=== PATIENT | male | born 1995 | race Caucasian/White ===

== ENCOUNTER 2024-01-05 17:26 | Inpatient (IN) | payer MEDICAID, OTHER ==
[~2024-01-05] VITALS: Ht 170.2 cm; Wt 46.3 kg
[2024-01-05 18:59] LABS: COVID AG,FIA SOURCE NPH
[2024-01-05 19:03] LABS: SARS-COV2 (COVID) ANTIGEN,FIA Negative (Negative)
[2024-01-05 19:11] LABS: BASOPHILS % (AUTO) 0.6 % (0.0-2.0); EOSINOPHILS % (AUTO) 0.1 % (1.0-6.0); HEMATOCRIT 46.1 % (41-53); HEMOGLOBIN 15.8 g/dL (13.5-17.5); LYMPHOCYTES # (AUTO) 1.5 K/uL (1.0-4.8); LYMPHOCYTES % (AUTO) 23.8 % (22.0-44.0); MEAN CORPUSCULAR HEMOGLOBIN 31.4 pg (26.0-34.0); MEAN CORPUSCULAR HGB CONC 34.3 G/dL (31.0-37.0); MEAN CORPUSCULAR VOLUME 91 fL (80-100); MONOCYTES # (AUTO) 0.4 K/uL (0.1-1.0); MONOCYTES % (AUTO) 6.8 % (2.0-9.0); NEUTROPHILS # (AUTO) 4.4 K/uL (1.8-7.7); NEUTROPHILS % (AUTO) 68.7 % (40.0-70.0); PLATELET COUNT (AUTO) 227 K/uL (150-450); RED BLOOD CELL COUNT(AUTO) 5.05 MIL/uL (4.50-5.90); RED CELL DISTRIBUTION WIDTH 13.3 % (11.5-14.5); WHITE BLOOD COUNT (AUTO) 6.4 K/uL (4.5-11.0)
[2024-01-05 19:20] LABS: ANION GAP 13 mmol/L (8-16); CALCIUM, TOTAL 9.3 mg/dL (8.8-10.5); CARBON DIOXIDE 25 mmol/L (22-29); CHLORIDE 100 mmol/L (98-107); CREATININE 0.91 mg/dL (0.60-1.30); GLOMERULAR FILTR. RATE CALC > 60 mL/min (>60); GLUCOSE,RANDOM 90 mg/dL (70-110); POTASSIUM 3.6 mmol/L (3.5-5.1); SODIUM SERUM 138 mmol/L (136-145); UREA NITROGEN, BLOOD 18 mg/dL (7-18)
[2024-01-05 19:32] LABS: ALANINE AMINOTRANSFERASE 18 U/L (12-78); ALBUMIN 4.8 g/dL (3.4-5.0); ALKALINE PHOSPHATASE 61 U/L (46-116); ASPARTATE AMINOTRANSFERASE 15 U/L (15-37); BILIRUBIN,TOTAL 1.5 mg/dL (0.1-1.0); TOTAL PROTEIN, SERUM 7.3 g/dL (6.4-8.2)
[2024-01-05 19:34] LABS: ALCOHOL, BLOOD (SERUM) < 3 mg/dL (0-10)
[2024-01-05] MEDS: LORazepam 2 MG/ML VIAL IM ONE (20:37)
[2024-01-05] MEDS: DiphenhydrAMINE HCL 50 MG/ML VIAL IM ONE (20:38)
[2024-01-05] MEDS: HALOPERIDOL LACTATE 5 MG/ML VIAL IM ONE (20:38)
[2024-01-06] MEDS ORDERED: HALOPERIDOL 5 MG TABLET PO PRN (02:00)
[2024-01-06 06:29] LABS: APPEARANCE,URINE HAZY (CLEAR); BILIRUBIN,URINE NEGATIVE (NEGATIVE); COLOR,URINE YELLOW (YELLOW); GLUCOSE, URINE (UA) NEGATIVE (NEGATIVE); KETONES,URINE 40-60 mg/dL (NEGATIVE); LEUKOCYTE ESTERASE ,URINE NEGATIVE (NEGATIVE); NITRATE,URINE NEGATIVE (NEGATIVE); OCCULT BLOOD,URINE NEGATIVE (NEGATIVE); PH,URINE 6.5 (5.0-8.0); PROTEIN,URINE 30-70 mg/dL (NEGATIVE); SPECIFIC GRAVITIY, URINE 1.034 (1.003-1.030)
[2024-01-06 06:30] LABS: PH,URINE DRUG SCREEN 6.5 (5.0-8.0)
[2024-01-06 06:35] LABS: ALCOHOL, URINE DRUG SCREEN NEGATIVE (NEGATIVE); AMPHET/METH SCREEN,URINE NEGATIVE (NEGATIVE); BARBITURATE SCREEN, URINE NEGATIVE (NEGATIVE); BENZODIAZEPINES SCREEN,URINE NEGATIVE (NEGATIVE); CANNABINOID SCREEN,URINE POSITIVE (NEGATIVE); COCAINE SCREEN,URINE NEGATIVE (NEGATIVE); METHADONE SCREEN, URINE NEGATIVE (NEGATIVE); OPIATE SCREEN,URINE NEGATIVE (NEGATIVE); PHENCYCLIDINE SCREEN,URINE NEGATIVE (NEGATIVE)
[2024-01-06 16:33] VITALS: BP 120/78; PULSE 78; RESP 18; TEMP 97.3; O2SAT 98
[2024-01-06] MEDS ORDERED: MAG HYDROX/ALUMINUM HYD/SIMETH ES 30 ML SUSPENSION UDCUP PO PRN (21:15)
[2024-01-06] MEDS ORDERED: NICOTINE 14 MG/24 HOUR PATCH TD PRN (21:15)
[2024-01-06] MEDS ORDERED: LOPERAMIDE HCL 2 MG CAPSULE PO PRN (21:15)
[2024-01-06] MEDS ORDERED: ALBUTEROL SULFATE HFA 90 MCG/PUFF 8 GM INHALER IH PRN (21:15)
[2024-01-06] MEDS ORDERED: PETROLATUM,WHITE 28 GM JELLY TP PRN (21:15)
[2024-01-06] MEDS ORDERED: DOCUSATE SODIUM 100 MG CAPSULE PO PRN (21:15)
[2024-01-06] MEDS ORDERED: MAGNESIUM HYDROXIDE SUSPENSION 30 ML UDCUP PO PRN (21:15)
[2024-01-06] MEDS ORDERED: ONDANSETRON HCL 4 MG TABLET PO PRN (21:15)
[2024-01-06] MEDS ORDERED: CloNIDine HCL 0.1 MG TABLET PO PRN (21:15)
[2024-01-06 21:35] VITALS: BP 125/89; PULSE 89; RESP 18; TEMP 96.8; O2SAT 97
[2024-01-06] MEDS: IBUPROFEN 400 MG TABLET PO PRN (21:40)
[2024-01-06] MEDS: ZOLPIDEM TARTRATE 10 MG TABLET PO PRN (22:37)
[2024-01-07 08:20] VITALS: RESP 18
[2024-01-07] MEDS: LORazepam 2 MG TABLET PO PRN (13:28)
[2024-01-07 21:10] VITALS: BP 120/74; PULSE 109; RESP 18; TEMP 98.2; O2SAT 97
[2024-01-08 08:04] VITALS: BP 124/80; PULSE 112; RESP 18; TEMP 99.6; O2SAT 96
[2024-01-08 08:18] VITALS: BP 124/80; PULSE 112; RESP 18; TEMP 99.6; O2SAT 96
[2024-01-08] MEDS: GuaiFENesin/D-METHORPHAN [SUGAR-FREE] 200-20MG/10 ML SYRUP UDCUP PO PRN (11:21)
[2024-01-08] MEDS: BENZOCAINE/MENTHOL LOZENGE PO PRN (15:36)
[2024-01-08 20:06] VITALS: BP 123/85; PULSE 112; RESP 18; TEMP 100.7; O2SAT 96
[2024-01-08 20:23] LABS: COVID AG,FIA SOURCE NASAL SWAB
[2024-01-08 20:42] LABS: SARS-COV2 (COVID) ANTIGEN,FIA Negative (Negative)
[2024-01-08 22:10] VITALS: TEMP 101.8
[2024-01-08] MEDS: ACETAMINOPHEN 325 MG TABLET PO PRN (22:13)
[2024-01-08 23:10] VITALS: TEMP 99.5
[2024-01-09 06:40] VITALS: RESP 18; TEMP 98; O2SAT 96
[2024-01-09 09:17] VITALS: BP 110/70; PULSE 106; RESP 18; TEMP 98.7; O2SAT 97
[2024-01-09 10:40] VITALS: BP 112/60; PULSE 100; RESP 18; TEMP 99; O2SAT 96
== END 2024-01-09 17:29 | disposition left against medical advice (07) | DRG 750 ==
LOC: EMS 17:26 → 3EC 01-06 15:04
PROVIDERS: ADMIT Psychiatry & Neurology Child & Adolescent Psychiatry; ATTEND Psychiatry & Neurology Child & Adolescent Psychiatry
DX: F20.9 Schizophrenia, unspecified (principal); E80.6 Other disorders of bilirubin metabolism; E87.6 Hypokalemia; G47.00 Insomnia, unspecified; Z53.29 Procedure and treatment not carried out because of patient's decision for other reasons; Z20.822 Contact with and (suspected) exposure to COVID-19; Z78.1 Physical restraint status; Z88.0 Allergy status to penicillin
CPT/HCPCS: 80053; 80307; 81003; 85025; 99285; G0480; J1200; J1630; J2060

== ENCOUNTER 2024-01-15 11:05 | Inpatient (IN) | payer MEDICAID ==
[~2024-01-15] VITALS: Ht 170.2 cm; Wt 49.9 kg
[~2024-01-15 11:05] MED LIST: OSEL75 PO
[2024-01-15] MEDS ORDERED: LORazepam 2 MG TABLET PO PRN (11:30)
[2024-01-15] MEDS ORDERED: OLANZapine 5 MG RAPDIS TABLET PO PRN (11:30)
[2024-01-15 21:45] VITALS: BP 113/67; PULSE 90; RESP 18; TEMP 97.7; O2SAT 100
[2024-01-15] MEDS: INFLUENZA VIRUS VACCINE QVS 2023-24 (6MO+)/PF 60 MCG/0.5 ML SYRINGE IM. ONE (22:00)
[2024-01-16 08:07] VITALS: BP 103/70; PULSE 85; RESP 18; TEMP 98; O2SAT 100
[2024-01-16] MEDS: DIVALPROEX SODIUM 500 MG ER TABLET PO SCH (16:06)
[2024-01-16 20:00] VITALS: BP 115/68; PULSE 80; RESP 18; TEMP 97.8; O2SAT 99
[2024-01-16] MEDS: OLANZapine 5 MG RAPDIS TABLET PO SCH (20:16)
[2024-01-17 08:07] VITALS: BP 120/64; PULSE 84; RESP 19; TEMP 97.9; O2SAT 100
[2024-01-17 10:38] LABS: APPEARANCE,URINE CLEAR (CLEAR); BILIRUBIN,URINE NEGATIVE (NEGATIVE); COLOR,URINE LIGHT YELLOW (YELLOW); GLUCOSE, URINE (UA) NEGATIVE (NEGATIVE); KETONES,URINE NEGATIVE (NEGATIVE); LEUKOCYTE ESTERASE ,URINE NEGATIVE (NEGATIVE); NITRATE,URINE NEGATIVE (NEGATIVE); OCCULT BLOOD,URINE NEGATIVE (NEGATIVE); PH,URINE 6.5 (5.0-8.0); PROTEIN,URINE NEGATIVE (NEGATIVE); SPECIFIC GRAVITIY, URINE 1.023 (1.003-1.030); UROBILINOGEN,URINE <=1.0 mg/dL (<=1.0)
[2024-01-17 10:43] LABS: PH,URINE DRUG SCREEN 6.5 (5.0-8.0)
[2024-01-17 10:46] LABS: ALCOHOL, URINE DRUG SCREEN NEGATIVE (NEGATIVE); AMPHET/METH SCREEN,URINE NEGATIVE (NEGATIVE); BARBITURATE SCREEN, URINE NEGATIVE (NEGATIVE); BENZODIAZEPINES SCREEN,URINE NEGATIVE (NEGATIVE); CANNABINOID SCREEN,URINE POSITIVE (NEGATIVE); COCAINE SCREEN,URINE NEGATIVE (NEGATIVE); METHADONE SCREEN, URINE NEGATIVE (NEGATIVE); OPIATE SCREEN,URINE NEGATIVE (NEGATIVE); PHENCYCLIDINE SCREEN,URINE NEGATIVE (NEGATIVE)
[2024-01-17 20:50] VITALS: BP 105/70; PULSE 78; RESP 18; TEMP 97.8; O2SAT 99
[2024-01-17] MEDS: ZOLPIDEM TARTRATE 10 MG TABLET PO PRN (23:04)
[2024-01-18 08:15] VITALS: BP 109/64; PULSE 88; RESP 16; TEMP 98.6; O2SAT 98
[2024-01-18] MEDS ORDERED: GuaiFENesin/D-METHORPHAN [SUGAR-FREE] 200-20MG/10 ML SYRUP UDCUP PO PRN (14:30)
[2024-01-18] MEDS ORDERED: HydrOXYzine PAMOATE 50 MG CAPSULE PO PRN (14:30)
[2024-01-18] MEDS ORDERED: MAG HYDROX/ALUMINUM HYD/SIMETH ES 30 ML SUSPENSION UDCUP PO PRN (14:30)
[2024-01-18] MEDS ORDERED: MAGNESIUM HYDROXIDE SUSPENSION 30 ML UDCUP PO PRN (14:30)
[2024-01-18] MEDS ORDERED: ACETAMINOPHEN 325 MG TABLET PO PRN (14:30)
[2024-01-18] MEDS ORDERED: PROMETHAZINE HCL 25 MG TABLET PO PRN (14:30)
[2024-01-18] MEDS ORDERED: LOPERAMIDE HCL 2 MG CAPSULE PO PRN (14:30)
[2024-01-18] MEDS: THIAMINE 100 MG TABLET PO SCH (16:54)
[2024-01-18 20:40] VITALS: BP 109/74; PULSE 78; RESP 16; TEMP 98.7; O2SAT 98
[2024-01-18] MEDS: MELATONIN 5 MG TABLET PO SCH (21:01)
[2024-01-19 08:32] VITALS: BP 104/87; PULSE 95; RESP 17; TEMP 97.6; O2SAT 96
[2024-01-19] MEDS: OMEGA-3/DHA/EPA/FISH OIL 1,000 MG CAPSULE PO SCH (08:54)
[2024-01-19] MEDS: MULTIVITAMINS WITH MINERALS, THERAPEUTIC TABLET PO SCH (08:55)
[2024-01-19] MEDS: FLUoxetine HCL 20 MG CAPSULE PO SCH (08:55)
[2024-01-19] MEDS: FOLIC ACID 1 MG TABLET PO SCH (08:55)
[2024-01-19 20:06] VITALS: BP 113/64; PULSE 80; RESP 16; TEMP 98.5; O2SAT 97
[2024-01-19] MEDS: OLANZapine 10 MG RAPDIS TABLET PO SCH (20:35)
[2024-01-20 08:04] VITALS: BP 102/68; PULSE 93; RESP 19; TEMP 98.2; O2SAT 98
[2024-01-20 08:04] LABS: CHOL/HDL RATIO 2.9 (4.2-7.3)
[2024-01-20 08:08] LABS: HEMOGLOBIN A1C 4.8 % (3.8-5.6)
[2024-01-20 20:18] VITALS: BP 116/76; PULSE 88; RESP 17; TEMP 98; O2SAT 100
[2024-01-21] MEDS: FLUoxetine HCL 20 MG CAPSULE PO SCH (08:15)
[2024-01-21 08:21] VITALS: BP 126/69; PULSE 102; RESP 17; TEMP 98.2; O2SAT 98
[2024-01-21] MEDS: TUBERCULIN, PURIFIED PROTEIN DERIVATIVE 5 TU/0.1 ML SYRINGE ID ONE (10:04)
[2024-01-21 20:05] VITALS: BP 111/74; PULSE 92; RESP 19; TEMP 98.5; O2SAT 99
[2024-01-21] MEDS ORDERED: DIVA500T69 PO (22:20)
[2024-01-21] MEDS ORDERED: OMEG-135 PO (22:20)
[2024-01-21] MEDS ORDERED: OLAN10TA26 PO (22:20)
[2024-01-21] MEDS ORDERED: FLUO20CA36 PO (22:20)
[2024-01-21] MEDS ORDERED: MELA5TAB40 PO (22:20)
[2024-01-22 08:31] VITALS: BP 117/67; PULSE 85; RESP 17; TEMP 98.5; O2SAT 100
[2024-01-22 20:05] VITALS: BP 113/81; PULSE 105; RESP 18; TEMP 97.3; O2SAT 95
[2024-01-23 08:20] VITALS: BP 116/70; PULSE 100; RESP 17; TEMP 98.5; O2SAT 100
[2024-01-23 20:37] VITALS: BP 106/63; PULSE 90; RESP 18; TEMP 98.7; O2SAT 97
[2024-01-24 08:21] VITALS: BP 117/83; PULSE 86; RESP 18; TEMP 98.4; O2SAT 98
[2024-01-24 20:30] VITALS: BP 102/61; PULSE 83; RESP 17; TEMP 98.1; O2SAT 98
[2024-01-25 08:11] VITALS: BP 116/72; PULSE 87; RESP 18; TEMP 98.4; O2SAT 97
[2024-01-25 08:12] VITALS: BP 116/72; PULSE 87; RESP 18; TEMP 98.4; O2SAT 97
[2024-01-25 21:16] VITALS: BP 116/77; PULSE 94; RESP 16; TEMP 98.6; O2SAT 98
[2024-01-26 08:24] VITALS: BP 117/75; PULSE 70; RESP 18; TEMP 97.5; O2SAT 98
[2024-01-26] MEDS: FLUoxetine HCL 20 MG CAPSULE PO SCH (09:31)
[2024-01-26 20:08] VITALS: BP 119/70; PULSE 96; RESP 18; TEMP 98.4; O2SAT 96
[2024-01-27 08:30] VITALS: BP 127/76; PULSE 96; RESP 18; TEMP 98; O2SAT 98
[2024-01-27 20:06] VITALS: BP 121/90; PULSE 107; RESP 18; TEMP 98.3; O2SAT 100
[2024-01-28 08:25] VITALS: BP 119/72; PULSE 87; RESP 17; TEMP 97.5; O2SAT 99
[2024-01-28 20:39] VITALS: BP 118/68; PULSE 91; RESP 17; TEMP 98.4; O2SAT 97
[2024-01-29 08:11] VITALS: BP 115/68; PULSE 84; RESP 19; TEMP 96.7; O2SAT 100
== END 2024-01-29 13:30 | disposition home or self-care (01) | DRG 750 ==
LOC: B2S 18:51
PROVIDERS: ADMIT Psychiatry & Neurology Psychiatry; ATTEND Psychiatry & Neurology Psychiatry
PROC: GZHZZZZ Group Psychotherapy (ICD-10-PCS; principal; 2024-01-15)
PROC: GZ51ZZZ Individual Psychotherapy, Behavioral (ICD-10-PCS; 2024-01-15)
DX: F25.9 Schizoaffective disorder, unspecified (principal); F12.90 Cannabis use, unspecified, uncomplicated; F17.200 Nicotine dependence, unspecified, uncomplicated; F32.A Depression, unspecified; F41.9 Anxiety disorder, unspecified; J44.9 Chronic obstructive pulmonary disease, unspecified; Z59.00 Homelessness unspecified; Z88.0 Allergy status to penicillin; Z91.011 Allergy to milk products; Z79.899 Other long term (current) drug therapy; Z91.199 Patient's noncompliance with other medical treatment and regimen due to unspecified reason
CPT/HCPCS: 80061; 80164; 80307; 81003; 83036; Q9967